=== PATIENT | male | born 1985 | race Caucasian/White ===

== ENCOUNTER 2024-07-14 09:10 | Emergency (ER) | payer OTHER, SELFPAY ==
[2024-07-14] VITALS (7 sets, daily range): BP systolic 129–147; BP diastolic 82–105; PULSE 64–77; RESP 12–18; TEMP 36.1; O2SAT 98–100; BMI 27.0
--- NOTE | 2024-07-14 09:48 | ED_ITS ---
HPI - Chest Pain General Time Seen by Provider: 09:49 Date Seen: 07/14/24 Chief Complaint: Chest Pain Stated Complaint: Chest Pain Time Seen by Provider: 07/14/24 09:33 Source: patient and RN notes reviewed Mode of arrival: ambulatory Limitations: no limitations History of Present Illness HPI narrative: This 39-year-old male is coming in with complaint of left chest pressure or squeezing sensation. He woke around 7:00 a.m. this morning and had this sensation. He took 650 mg aspirin, then took some Pepto-Bismol. He sat in the tub for about a 1/2 hour and symptoms were not going away. Thought it was maybe heartburn but thought he should come in to get evaluated. 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 He states he usually lives a pretty healthy lifestyle, exercises. Over the holidays he has not eaten as well. He states on he ate a whole bunch of jalapeno poppers, appetizers. He is wondering if this is more gastrointestinal or reflux. Pain in is gone at this time. He has not had any cough or cold symptoms. He has never had a blood clot, no heart history. He is not aware of any family history of blood clotting issues or heart disease. He has had no prolonged travel, no recent surgery. He is not sure if he has ever had his cholesterol checked, certainly not recently. He is not known to be diabetic. He does not use any nicotine products. MD complaint: chest discomfort Related Data Home Medications ?Medication ?Instructions ?Recorded ?Confirmed No Known Home Medications 07/14/24 07/14/24 Allergies Allergy/AdvReac Type Severity Reaction Status Date / Time No Known Drug Allergies Allergy Verified 07/14/24 09:16 Review of Systems Status of ROS Reports: 6 or more systems reviewed and unremarkable except as noted in History and below PFSH PFS Social History Smoking Status: Never smoker Do you use any of these nicotine containing products: None Second hand tobacco smoke exposure: No How often do you have a drink containing alcohol: never How often do you have six or more drinks on one occasion: Never AUDIT-C Alcohol total score: 0 Non-prescribed substance use: denies use service: No Exam Const Vital Signs, click to edit/add: Vital Signs - 24 hr 07/14/24 09:16 Temperature 97 F L Pulse Rate [Pulse Oximeter] 76 Respiratory Rate 18 Blood Pressure [Left Upper Arm] 147/87 H Pulse Oximetry 100 Oxygen Delivery Method Room Air Patient is alert, interactive, no apparent distress. Sclera clear, conjugate gaze, symmetrical facial function, able to speak in complete sentences. Neck supple, no adenopathy, no masses, no jugular venous distension. Lungs are clear, good air entry, no wheezing or crackles, no tachypnea. CV regular rate and rhythm, no murmur, normal S1-S2, no S3-S4. Abdomen is soft, nontender, nondistended, no organomegaly, no rebound or guarding, no masses noted. He has no lower extremity edema, negative Homans sign. Documenting provider has reviewed patient's vital signs: yes Course Course ED Course: Patient's symptoms are nearly resolved, am seen him right about the 3 hour abhilash from onset of his symptoms. Reviewed that his EKG is not showing anything definitive for ischemia but the EKG is not independently sufficient in this scenario for looking at cardiac issues. He is extremely afraid of needles. He is about 3 hours out from the onset of his symptoms and improved, I do think a solitary troponin at this time would be sufficient if it is normal. He is PERC negative but did discuss D-dimer, his is here at this time as well, they would like this lab drawn. He understands if the D-dimer should come back positive, he would need an IV placed and to go to chest CT imaging. Will do portable chest x-ray in the interim. Need to rule out ischemic heart disease, consider thromboembolic disease such as pulmonary emboli. Could be atypical presentation of GI sit abdomen is, atypical presentation of pneumonia. He is currently hemodynamically stable, took aspirin himself already this morning at above adequate dosing. Reevaluation(s) Time of Reevaluation #1: 11:25 Reevaluation #1: Have updated patient and his that his labs are completely normal. His D- dimer did come back normal. His chest x-ray showing no acute pathology. He is asymptomatic. We discussed that there is no evidence of active ischemia or acute heart attack today but underlying coronary artery disease is not thoroughly ruled out. It would be recommended that he follow-up for cardiac stress test. He does not have a primary, request that we set him up for cardiac stress testing. We did discuss lifestyle management with attempting to eat healthier. His did state that he is using chewing tobacco. Would recommend cessation of this. Did discuss with him getting scheduled for a physical where he can have his lipids updated. Vital Signs Vital signs: Initial Vital Signs Temperature 97 F L 07/14/24 09:16 Temperature Source Temporal Artery Scan 07/14/24 09:16 Pulse Rate 76 07/14/24 09:16 Pulse Rhythm Regular 07/14/24 09:16 Respiratory Rate 18 07/14/24 09:16 Blood Pressure 147/87 H 07/14/24 09:16 Blood Pressure Mean 107 H 07/14/24 09:16 Blood Pressure Position High-Fowlers 07/14/24 09:16 Pulse Oximetry 100 07/14/24 09:16 Oxygen Delivery Method Room Air 07/14/24 09:16 Vital Signs Temperature 97 F L 07/14/24 09:16 Pulse Rate 76 07/14/24 09:16 Respiratory Rate 18 07/14/24 09:16 Blood Pressure 147/87 H 07/14/24 09:16 Pulse Oximetry 100 07/14/24 09:16 Oxygen Delivery Method Room Air 07/14/24 09:16 Temperature 97 F L 07/14/24 09:16 Pulse Rate 76 07/14/24 09:16 Respiratory Rate 18 07/14/24 09:16 Blood Pressure 147/87 H 07/14/24 09:16 Pulse Oximetry 100 07/14/24 09:16 Oxygen Delivery Method Room Air 07/14/24 09:16 MDM - Chest Pain Lab Data Attestation: I reviewed the patient's lab results. Labs: Lab Results 07/14/24 Range/Units 10:29 WBC 10.89 (4.50-11.00) K/uL RBC 5.62 (4.30-5.90) m/uL Hgb 16.5 (13.5-17.5) gm/dL Hct 50.2 (37.0-53.0) % MCV 89 (80-100) fL MCH 29 (26-34) pg MCHC 33 (32-36) gm/dL RDW Coeff of Fab 12.4 (11.5-15.5) % Plt Count 204 (140-440) K/uL Neut % (Auto) 80.3 H (42.0-72.0) % Lymph % (Auto) 14.0 L (20-44) % [place] % (Auto) 4.5 (0.0-11.0) % Eos % (Auto) 0.7 (0.0-7.0) % Baso % (Auto) 0.2 (0.0-3.0) % Neut # (Auto) 8.70 H (1.7-7.0) K/uL Lymph # (Auto) 1.50 (0.90-2.90) K/uL [place] # (Auto) 0.50 (0.00-0.90) K/UL Eos # (Auto) 0.08 (0.00-0.50) K/uL Baso # (Auto) 0.02 (0.00-0.30) K/uL Abs Immat Gran (auto) 0.03 (0.00-0.30) K/uL Imm/Tot Granulo (auto) 0.3 % D-Dimer Quant (PE/DVT) 0.13 (0.00-0.50) ug/ml Sodium 138 (135-149) mmol/L Potassium 4.2 (3.6-5.1) mmol/L Chloride 104 (96-114) mmol/L Carbon Dioxide 29 (20-32) mmol/L Anion Gap 5 L (7-15) mEq/L BUN 17 (5-24) mg/dL Creatinine 0.9 (0.5-1.5) mg/dL Estimated Creat Clear 122.07 Estimated GFR 110 ml/min Glucose 104 (60-115) mg/dL Lactate 1.2 (0.5-1.9) mmol/L Calcium 9.6 (8.4-10.6) mg/dL Total Bilirubin 0.3 (0.1-1.5) mg/dL Direct Bilirubin 0.2 (0.0-0.5) mg/dL AST 27 (12-35) U/L ALT 40 (4-50) U/L Alkaline Phosphatase 63 (40-150) U/L Troponin I < 0.01 L (0.01-0.04) ng/mL C-Reactive Protein < 0.5 L (0.5-1.0) mg/dL NT-Pro-B Natriuret Pep 63 pg/mL Total Protein 7.0 (6.0-8.3) g/dL Albumin 4.4 (3.3-5.0) g/dL Lipase 89 (23-300) U/L Imaging Data Chest x-ray: Attestation: I have reviewed the pertinent imaging results. My impression: I do not see any acute pathology on my preliminary review of this chest x-ray. Radiologist's impression: Patient: VIGNESH LIU Facility:?[facility] Patient ID:?[id number] Site Patient ID:?[id number]. Site :?[id number] Study:?XRay-Chest 1V Portable-07/14/2024 10:27:36 AM Ordering Physician:Camelia Foster Final Report: Indication: Left chest pressure episode. Technique: One view(s) of the chest. Comparison: None available. Findings: Normal cardiomediastinal silhouette and pulmonary vasculature. Lungs are well inflated. Minimal right apical pleural thickening. No focal consolidation, pleural effusion or pneumothorax. No acute osseous abnormality. Impression: No acute cardiopulmonary abnormality identified. Dictated by Serena Sierra MD @ 07/14/2024 10:32:56 AM (Electronic Signature) ECG Data Attestation: I personally reviewed and interpreted this ECG as follows: (Normal sinus rhythm, 84 beats per minute. Incomplete right bundle branch block. No evidence of any active ischemia or infarct.) ECG interpretation date: 07/14/24 ECG interpretation time: 10:13 Prior ECG tracings: not available for review Discharge Plan Discharge Clinical Impression: Chest pain Qualifiers: Chest pain type: unspecified Qualified Code(s): R07.9 - Chest pain, unspecified Patient Disposition: Home, Self-Care Condition: Stable Instructions: Chest Pain (ED), Noncardiac Chest Pain (ED) Additional Instructions: A cardiac stress test has been ordered, we will work on getting that arranged for you. Do recommend that you get scheduled for physical through clinic, have your lipids checked. Continue to work on lifestyle modification with healthy eating, no nicotine products. In the meantime, if you have recurrence of your symptoms, have further issues or concerning health changes, do recommend re- evaluation. We will get you a follow-up appointment with Dr. Rodriguez in [place]. Activity Level: Activity as Tolerated Discharge Diet: Heart Healthy (2 gm sodium, low fat) Prescriptions: No Action No Known Home Medications Follow Up/Referrals: Provider,Not a Local [Primary Care Provider] - Stand Alone Forms: [employer] Info Instructions
--- NOTE | 2024-07-14 10:06 | CRLHL7_ITS ---
For Patients: As a result of the Century Cures Act, medical imaging exams and procedure reports are released immediately into your electronic medical record. You may view this report before your referring provider. If you have questions, please contact your health care provider. Indication: Left chest pressure episode. Technique: One view(s) of the chest. Comparison: None available. Findings: Normal cardiomediastinal silhouette and pulmonary vasculature. Lungs are well inflated. Minimal right apical pleural thickening. No focal consolidation, pleural effusion or pneumothorax. No acute osseous abnormality. Impression: No acute cardiopulmonary abnormality identified. Dictated by Serena Sierra MD @ 07/14/2024 10:32:56 AM (Electronically Signed)
[2024-07-14 10:35] LABS: Lactate* 1.2 mmol/L (0.5-1.9)
[2024-07-14 10:41] LABS: Basophils Absolute Auto 0.02 K/uL (0.00-0.30); Basophils Percent Auto 0.2 % (0.0-3.0); Eosinophils Absolute Auto 0.08 K/uL (0.00-0.50); Eosinophils Percent Auto 0.7 % (0.0-7.0); Hematocrit 50.2 % (37.0-53.0); Hemoglobin* 16.5 gm/dL (13.5-17.5); Immature Granulocytes Abs Auto 0.03 K/uL (0.00-0.30); Immature Granulocytes Pct Auto 0.3 %; Mean Corpuscular HGB Conc 33 gm/dL (32-36); Mean Corpuscular Hemoglobin 29 pg (26-34); Mean Corpuscular Volume 89 fL (80-100); Monocytes Percent Auto 4.5 % (0.0-11.0); Neutrophils Percent Auto 80.3 % (42.0-72.0); Platelet Count* 204 K/uL (140-440); RDW Coefficient of Variation % 12.4 % (11.5-15.5); Red Blood Count 5.62 m/uL (4.30-5.90); White Blood Count* 10.89 K/uL (4.50-11.00)
[2024-07-14 10:42] LABS: Slide Review Reflex No
[2024-07-14 10:55] LABS: Albumin* 4.4 g/dL (3.3-5.0); Chloride* 104 mmol/L (96-114)
[2024-07-14 10:56] LABS: Potassium* 4.2 mmol/L (3.6-5.1); Sodium* 138 mmol/L (135-149)
[2024-07-14 10:58] LABS: Creatinine* 0.9 mg/dL (0.5-1.5); Est. Creatinine Clearance* 122.07; Estimated Glomerular Filt Rate 110 ml/min
[2024-07-14 10:59] LABS: Alanine Aminotransferase* 40 U/L (4-50); Alkaline Phosphatase* 63 U/L (40-150); Anion Gap 5 mEq/L (7-15); Aspartate Amino Transferase* 27 U/L (12-35); Bilirubin Direct* 0.2 mg/dL (0.0-0.5); Bilirubin Total* 0.3 mg/dL (0.1-1.5); Blood Urea Nitrogen* 17 mg/dL (5-24); Calcium* 9.6 mg/dL (8.4-10.6); Carbon Dioxide* 29 mmol/L (20-32); Glucose* 104 mg/dL (60-115); Lipase* 89 U/L (23-300)
[2024-07-14 11:09] LABS: D Dimer Quantitative* 0.13 ug/ml (0.00-0.50)
[2024-07-14 11:10] LABS: Troponin I* < 0.01 ng/mL (0.01-0.04)
[2024-07-14 11:11] LABS: C Reactive Protein* < 0.5 mg/dL (0.5-1.0); NT Pro B Type NatriureticPept* 63 pg/mL
== END 2024-07-14 12:10 | disposition home or self-care (01) ==
PROVIDERS: Emergency Provider Family Medicine
DX: R07.9 Chest pain, unspecified (principal)
CPT/HCPCS: 36415; 71045; 80053; 82248; 83605; 83690; 83880; 84484; 85025; 85379; 86140; 93005; 94761; 99284

== ENCOUNTER 2024-07-19 10:34 | Outpatient (CLI) | payer OTHER, SELFPAY ==
[2024-07-19 11:58] VITALS: BP 155/87; PULSE 108
--- NOTE | 2024-07-19 21:57 | W.PM.STED ---
Stress Test Note Date Date Seen: 07/19/24 Date of test: 07/19/24 Providers Primary care provider: Diogo Rodriguez Stress test physician: Kristin Tong Stress Test Note Stress test ordered: Exercise Stress Test Indication for test: Chest pain Stress test medicine: None Results discussion: Resting EKG: Sinus rhythm, 92 beats per minute. Incomplete right bundle branch block. Resting blood pressure: 119/80 Stress test: Patient will be undergoing treadmill exercise stress test following Elia protocol. Insurance denied echo with this and thus proceeding with plain treadmill. Patient exercised for a duration of 12 minutes 31 seconds, cool event to 12.9 Mets. He stopped due to reaching exercise capacity. He had a maximum heart rate of 154 beats per minute which was 101% of a calculated target heart rate of 152. He had a maximum blood pressure of 180/90. His rate pressure product was 27,720. There was no diagnostic ischemic change on this EKG. He had no arrhythmia. Patient had no chest pain. Impression: Subjectively negative, objectively negative treadmill Elia protocol exercise stress test. Follow up suggested: As per prior plan when he was in the ED, he is going to schedule a follow-up with Dr. Rodriguez in [place]. Patient and I had discussed a heart scan through [facility] for more information for him, he can look into this. He is discharged from here in stable condition. He is advised to have lipid panel done with primary care.
== END 2024-07-19 10:35 | disposition home or self-care (01) ==
LOC: STRESS 10:35
PROVIDERS: Visit Provider Family Medicine
DX: R07.89 Other chest pain (principal)
CPT/HCPCS: 93016; 93017